=== PATIENT | female | born 1955 | race Caucasian/White ===

== ENCOUNTER 2016-05-26 20:52 | Emergency (ER) | payer BC ==
[~2016-05-26] VITALS: Ht 162.6 cm; Wt 49.9 kg
[2016-05-26 21:21] LABS: BASOPHILS % (AUTO) 1 % (0-10); EOSINOPHILS # (AUTO) 0.1 10^3/uL (0.0-0.3); EOSINOPHILS % (AUTO) 1 % (0-10); LYMPHOCYTES # (AUTO) 1.7 X 10^3 (1.0-4.0); LYMPHOCYTES % (AUTO) 26 % (12-44); MEAN CORPUSCULAR HEMOGLOBIN 32 PG (25-34); MEAN CORPUSCULAR HGB CONC 34 G/DL (32-36); MEAN CORPUSCULAR VOLUME 92 FL (80-99); MEAN PLATELET VOLUME 10.7 FL (7.4-10.4); MONOCYTES # (AUTO) 0.6 X 10^3 (0.0-1.0); MONOCYTES % (AUTO) 9 % (0-12); NEUTROPHILS % (AUTO) 62 % (42-75); PLATELET COUNT 239 10^3/uL (130-400); RED BLOOD COUNT 4.56 10^6/uL (4.35-5.85); RED CELL DISTRIBUTION WIDTH 12.2 % (10.0-14.5); WHITE BLOOD COUNT 6.4 10^3/uL (4.3-11.0)
--- NOTE | 2016-05-26 21:30 | Diagnostic Imaging Report ---
INDICATION: Shaking, weakness, and tingling in extremities. COMPARISON STUDIES: None. FINDINGS: Frontal view of the chest demonstrates the lungs to be clear. The heart, mediastinum, pulmonary vascularity, and visualized bony thorax are normal. IMPRESSION: Negative chest. Dictated by: Dictated on workstation # [id number]
[2016-05-26 21:31] LABS: INR 0.8 (0.8-1.4); PROTHROMBIN TIME PATIENT 11.2 SEC (12.2-14.7)
[2016-05-26 21:40] LABS: ALANINE AMINOTRANSFERASE 15 U/L (0-55); ALBUMIN 4.8 G/DL (3.2-4.5); ANION GAP 14 MMOL/L (5-14); ASPARTATE AMINO TRANSFERASE 22 U/L (5-34); BILIRUBIN,TOTAL 0.5 MG/DL (0.1-1.0); BLOOD UREA NITROGEN 24 MG/DL (7-18); BUN/CREATININE RATIO 28; CALCIUM 9.6 MG/DL (8.5-10.1); CARBON DIOXIDE 24 MMOL/L (21-32); CHLORIDE 106 MMOL/L (98-107); CREATININE SERUM 0.85 MG/DL (0.60-1.30); GFR ESTIMATED > 60; GLUCOSE 120 MG/DL (70-105); MAGNESIUM 2.3 MG/DL (1.8-2.4); POTASSIUM 3.5 MMOL/L (3.6-5.0); SODIUM 144 MMOL/L (135-145); TOTAL PROTEIN 7.7 G/DL (6.4-8.2)
--- NOTE | 2016-05-26 21:44 | Diagnostic Imaging Report ---
PROCEDURE: CT head without contrast. TECHNIQUE: Multiple contiguous axial images were obtained through the brain without the use of intravenous contrast. INDICATION: Shaking, weakness, tingling in the extremities FINDINGS: Noncontrast CT scanning of the head demonstrates no mass effect, midline shift, hemorrhage, or extra-axial fluid collections. The tadeo-white matter differentiation is normal. The ventricles, cortical sulci and basilar cisterns are normal. Mastoid air cells are clear. There is some mucosal thickening of the right ethmoid sinus. The maxillary sinuses are not included on the CT. IMPRESSION: 1. Normal intracranial findings. 2. Sinusitis. Dictated by: Dictated on workstation # [id number]
[2016-05-26 21:52] LABS: BILIRUBIN,URINE NEGATIVE (NEGATIVE); KETONES,URINE NEGATIVE (NEGATIVE); LEUKOCYTE ESTERASE ,URINE NEGATIVE (NEGATIVE); NITRITE,URINE NEGATIVE (NEGATIVE); PH,URINE 7 (5-9); PROTEIN,URINE NEGATIVE (NEGATIVE); UROBILINOGEN,URINE NORMAL (NORMAL)
--- NOTE | 2016-05-26 21:54 | ED General ---
General Chief Complaint: Neurological Problems Stated Complaint: NUMBNESS IN BILAT HANDS,DIZZINESS Nursing Triage Note: Pt. advised she has been experiencing tingling in her hands and feet for the past few weeks that has become progressively worse. She advised she has sceen her PCP for recent hypertension and has begun a new medication regemin. She advised tonight the numbness and tingling are progressively worse and she has been experiencing pain in her ears and advises a burning pain. She states she was experiencing a headache and nausea earlier tonight. Last known well time at approx. 1999 Nursing Sepsis Screen: No Definite Risk Source of Information: Patient History of Present Illness Time Seen by Provider: 21:10 Initial Comments PT ARRIVES VIA POV FROM HOME STATES SHE HAS BEEN FEELING SHAKEY AND LIGHTHEADED SINCE 1999 TONIGHT GOT CLAMMY WELL HAD HEADACHE EARLIER TODAY BUT NOT NOW NO CHEST PAIN NO SHORTNESS OF BREATH NO SWELLING IN LEGS/FEET OR PAIN IN CALVES NO NAUSEA/VOMITING/DIARRHEA AND HAS BEEN EATING AND DRINKING WELL TODAY NO RECENT ILLNESS NO VISION CHANGES NO PALPITATIONS PT HAS HAD ONGOING ISSUES WITH CHRONIC BILATERAL LEG PAIN AND TINGLING IN HANDS AND FEET FOR MANY MONTHS--> MONTHS STATES HER HANDS AND FEET FEEL TINGLY NOW/ BILATERALLY--THIS IS NO DIFFERENT THAN WHAT SHE HAS BEEN EXPERIENCING FOR MONTHS NO MOTOR DEFICITS STATES SHE FELT LIKE THIS ON Wednesday05/24/16 WELL, BUT LASTED 1 1/2 HOURS AND WENT AWAY STATES SHE SAW DR. TEJEDA YESTERDAY, A WEEK AGO AND THE WEEK BEFORE THAT--HAS HAD LAB DONE HE DX HER WITH RAYNAUD'S AND STARTED HER ON MELOXICAM AND GABAPENTIN ON 05/21 HE ALSO DX HER WITH HTN AND STARTED HER ON BP MEDICATION, AMLODIPINE, YESTERDAY. PT TOOK FIRST DOSE YESTERDAY AND HAD A DOSE THIS AM. HAS A FOLLOW UP APPOINTMENT ON Wednesday05/29/16 PCP: DR. TEJEDA Allergies and Home Medications Allergies Coded Allergies: No Known Drug Allergies (Unverified , 05/26/16) Home Medications Cefdinir 300 Mg Capsule #20 300 MG PO BID Prescribed by: CHRISTOPHER OLIVER on 05/26/162219 Fluticasone Propionate 9.9 Ml [place].susp #1 2 SPRAYS NS BID Prescribed by: CHRISTOPHER OLIVER on 05/26/162219 Meclizine HCl 25 Mg Tablet #30 25-50 MG PO Q6H Prescribed by: CHRISTOPHER OLIVER on 05/26/166 Constitutional: see HPINo chills, No diaphoresis, dizzinessNo malaise, No weakness EENTM: no symptoms reportedNo blurred vision, No double vision, No ear pain, No eye pain, No hearing loss, No nose congestion, No vision loss Respiratory: no symptoms reportedNo cough, No dyspnea on exertion, No orthopnea, No short of breath, No wheezing Cardiovascular: no symptoms reportedNo chest pain, No edema, No palpitations, No syncope, No vascular heart diseas Gastrointestinal: no symptoms reportedNo abdominal pain, No diarrhea, No dysphagia, No loss of appetite, No nausea, No vomiting Genitourinary: no symptoms reported Musculoskeletal: see HPI (ALL CHRONIC / STABLE) Skin: no symptoms reportedNo rash Psychiatric/Neurological: See HPI ParesthesiaDenies Seizure, Denies Tremors, Denies Weakness Hematologic/Lymphatic: No Symptoms ReportedDenies Easy Bleeding, Denies Easy Bruising, Denies Swollen Glands Immunological/Allergic: no symptoms reported Past Wvqiygw-Cdowdt-Zddlyw Hx Patient Social History Alcohol Use: Denies Use Recreational Drug Use: No Smoking Status: Never a Smoker Recent Foreign Travel: No Contact w/Someone Who Travel: No Recent Infectious Disease Expo: No Recent Hopitalizations: No Seasonal Allergies Seasonal Allergies: No Surgeries HX Surgeries: Yes Surgeries: Gallbladder Respiratory Hx Respiratory Disorders: No Cardiovascular Hx Cardiac Disorders: Yes (HTN DX 05/2016) Cardiac Disorders: Hypertension Neurological Hx Neurological Disorders: No Reproductive System Hx Reproductive Disorders: No Genitourinary Hx Genitourinary Disorders: No Gastrointestinal Hx Gastrointestinal Disorders: No Musculoskeletal Hx Musculoskeletal Disorders: No Endocrine Hx Endocrine Disorders: No HEENT HX ENT Disorders: Yes Hearing Impairment: Hard of Hearing Cancer Hx Cancer: No Psychosocial Hx Psychiatric Problems: No Integumentary HX Skin/Integumentary Disorder: No Blood Transfusions Hx Blood Disorders: No Physical Exam Vital Signs Vital Sign - Last 12Hours 05/26/16 21:15 Temp 98.9 Pulse 86 Resp 14 B/P 177/102 Pulse Ox 98 Capillary Refill : Less Than 3 Seconds General Appearance: No Apparent Distress WD/WN Anxious HEENT: PERRL/EOMI TMs Normal Normal ENT Inspection Pharynx Normal Other (HARD OF HEARING) Neck: Full Range of Motion Normal Inspection Non Tender SuppleNo Carotid Bruit , No JVD Respiratory: Chest Non Tender Normal Breath Sounds No Accessory Muscle Use No Respiratory Distress Cardiovascular: Regular Rate, Rhythm No Edema No JVD No Murmur Normal Peripheral Pulses Gastrointestinal: Normal Bowel Sounds No Organomegaly No Pulsatile Mass Non Tender Soft Back: Normal Inspection No CVA Tenderness No Vertebral Tenderness Extremity: Normal Capillary Refill Normal Inspection Normal Range of Motion Non Tender No Calf Tenderness No Pedal Edema Neurologic/Psychiatric: Alert Oriented x3 No Motor/Sensory Deficits Normal Mood/Affect (EXCEPT ANXIOUS) 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 Norm as TestedNo Abnormal Cerebellar Tests Skin: Normal Color Warm/Dry Progress/Results/Core Measures Results/Orders Lab Results Laboratory Tests Test 05/26/16 21:13 05/26/16 21:44 Range/Units Activated Partial Thromboplast Time 24 24-35 SEC Alanine Aminotransferase (ALT/SGPT) 15 0-55 U/L Albumin 4.8 H 3.2-4.5 G/DL Alkaline Phosphatase 46 40-136 U/L Anion Gap 14 5-14 MMOL/L Aspartate Amino Transf (AST/SGOT) 22 5-34 U/L BUN/Creatinine Ratio 28 Basophils # (Auto) 0.0 0.0-0.1 10^3/uL Basophils (%) (Auto) 1 0-10 % Blood Urea Nitrogen 24 H 7-18 MG/DL Calcium Level 9.6 8.5-10.1 MG/DL Carbon Dioxide Level 24 21-32 MMOL/L Chloride Level 106 98-107 MMOL/L Creatinine 0.85 0.60-1.30 MG/DL Eosinophils # (Auto) 0.1 0.0-0.3 10^3/uL Eosinophils (%) (Auto) 1 0-10 % Estimat Glomerular Filtration Rate > 60 Glucose Level 120 H 70-105 MG/DL Hematocrit 42 35-52 % Hemoglobin 14.4 11.5-16.0 G/DL INR Comment 0.8 0.8-1.4 Lymphocytes # (Auto) 1.7 1.0-4.0 X 10^3 Lymphocytes (%) (Auto) 26 12-44 % Magnesium Level 2.3 1.8-2.4 MG/DL Mean Corpuscular Hemoglobin 32 25-34 PG Mean Corpuscular Hemoglobin Concent 34 32-36 G/DL Mean Corpuscular Volume 92 80-99 FL Mean Platelet Volume 10.7 H 7.4-10.4 FL Monocytes # (Auto) 0.6 0.0-1.0 X 10^3 Monocytes (%) (Auto) 9 0-12 % Myoglobin 32.4 10.0-92.0 NG/ML Neutrophils # (Auto) 4.0 1.8-7.8 X 10^3 Neutrophils (%) (Auto) 62 42-75 % Platelet Count 239 130-400 10^3/uL Potassium Level 3.5 L 3.6-5.0 MMOL/L Prothrombin Time 11.2 L 12.2-14.7 SEC Red Blood Count 4.56 4.35-5.85 10^6/uL Red Cell Distribution Width 12.2 10.0-14.5 % Sodium Level 144 135-145 MMOL/L TSH [place] Testing 4.38 0.35-4.94 UIU/ML Total Bilirubin 0.5 0.1-1.0 MG/DL Total Protein 7.7 6.4-8.2 G/DL Troponin I < 0.30 <0.30 NG/ML White Blood Count 6.4 4.3-11.0 10^3/uL Urine Amorphous Sediment RARE HOMERO URATES H /LPF Urine Bacteria NEGATIVE /HPF Urine Bilirubin NEGATIVE NEGATIVE Urine Casts NONE /LPF Urine Clarity CLEAR Urine Color YELLOW Urine Crystals NONE /LPF Urine Culture Indicated NO Urine Glucose (UA) NEGATIVE NEGATIVE Urine Ketones NEGATIVE NEGATIVE Urine Leukocyte Esterase NEGATIVE NEGATIVE Urine Mucus NEGATIVE /LPF Urine Nitrite NEGATIVE NEGATIVE Urine Protein NEGATIVE NEGATIVE Urine RBC 0-2 /HPF Urine RBC (Auto) 4+ H NEGATIVE Urine Specific Ages [place] 1.010 L 1.016-1.022 Urine Squamous Epithelial Cells 0-2 /HPF Urine Urobilinogen NORMAL NORMAL MG/DL Urine WBC NONE /HPF Urine pH 7 5-9 My Orders Orders-MELODYMARIOA K DO O2 (05/26/16 21:12) Ekg Tracing (05/26/16 21:12) Cbc With Automated Diff (05/26/16 21:12) Comprehensive Metabolic Panel (05/26/16 21:12) Protime With Inr (05/26/16 21:12) Partial Thromboplastin Time (05/26/16 21:12) Magnesium (05/26/16 21:12) Chest 1 View, Ap/Pa Only (05/26/16 21:12) Cardiac Profile 1 (05/26/16 21:12) Myoglobin Serum (05/26/16 21:12) Ct Head Wo (05/26/16 21:12) Monitor-Rhythm Ecg Trace Only (05/26/16 21:12) Saline Lock/Iv-Start (05/26/16 21:12) Thyroid Analyzer (05/26/16 21:12) Ua Culture If Indicated (05/26/16 21:12) Ceftriaxone Injection (Rocephin Injectio (05/26/16 22:45) Rx-Meclizine Hcl (Rx-Antivert) (05/26/16 22:34) Vital Signs/I&O Blood Pressure Mean: 127 Progress Note : Progress Note UNEVENTFUL ER STAY BP DOWN AT DISMISSAL ECG Initial ECG Impression Time: 21:10 Initial ECG Rate: 85 Initial ECG Rhythm: Normal Sinus Initial ECG Impression: Normal Initial ECG Comparisson: No Previous ECG Available Diagnostic Imaging Comments CT HEAD--SINUSITIS, OTHERWISE NO ACUTE PROCESS CXR--NO ACUTE PROCESS PER RADIOLOGIST REPORTS @ 2154 Reviewed: Reviewed by Me Departure Impression Impression: Primary Impression: HTN-NEW DIAGNOSIS Additional Impressions: CHRONIC BILATERAL HAND AND FEET PARESTHESIAS Sinusitis Disposition: HOME, SELF-CARE Condition: Stable Departure-Patient Inst. Referrals: KARLI TEJEDA DO (PCP/Family) Primary Care Physician Patient Instructions: Heart Healthy Diet, High Blood Pressure (DC), Paresthesias (DC), Sinusitis, Adult (DC) Add. Discharge Instructions: TAKE YOUR MEDICATIONS PRESCRIBED FOLLOW UP WITH DR. TEJEDA THIS WEEK SCHEDULED RETURN TO ER IF SYMPTOMS WORSEN All discharge instructions reviewed with patient and/or family. Voiced understanding. Scripts Meclizine HCl 25 Mg Gahsph64-20 Mg PO Q6H Dizziness #30 TAB Prov:CHRISTOPHER OLIVER DO 05/26/16 Fluticasone Propionate (Flonase Allergy Relief)9.9 Ml [place].susp2 Sprays NS BID #1 SPRAY Prov:CHRISTOPHER OLIVER DO 05/26/16 Cefdinir 300 Mg [id number] Mg PO BID FOR INFECTION #20 CAP Prov:CHRISTOPHER OLIVER DO 05/26/16 CHRISTOPHER OLIVER DO May 26, 2016 21:54
[2016-05-26 21:59] LABS: MYOGLOBIN SERUM 32.4 NG/ML (10.0-92.0)
[2016-05-26 22:00] LABS: SQUAMOUS EPITHELIAL CELL,UR 0-2 /HPF
[2016-05-26] MEDS ORDERED: FLUT9.9S NS (22:20)
[2016-05-26] MEDS ORDERED: CEFD300C3 PO (22:20)
[2016-05-26] MEDS ORDERED: RX-MECLIZINE HCL (ANTIVERT) 25 MG TAB #4 PPK PO STA (22:34)
[2016-05-26] MEDS ORDERED: MECL-106 PO (22:36)
[2016-05-26] MEDS ORDERED: cefTRIAXone INJECTION 1,000 MG in NS (IVPB) 50 ML IV ONE (22:45)
[2016-05-27 00:02] VITALS: BP 140/90
== END 2016-05-27 00:04 | disposition home or self-care (01) ==
LOC: EDUNIT# 20:52 → ER 20:54
DX: R20.2 Paresthesia of skin (principal); J32.2 Chronic ethmoidal sinusitis; I10 Essential (primary) hypertension; Z79.899 Other long term (current) drug therapy
CPT/HCPCS: 36415; 70450; 71010; 80053; 81000; 83735; 83874; 84443; 84484; 85025; 85610; 85730; 93005; 93041; 96365

== ENCOUNTER → 2016-06-26 | Outpatient (CLI) | payer BC ==
[~2016-06-26] VITALS: Ht 154.9 cm; Wt 49.9 kg
[~2016-06-26] MED LIST: CATHETER FLUSH 10 ML SYR IV PRN; CEFD300C3 PO; FLUT9.9S NS; MECL-106 PO
--- OUTSIDE RECORDS SUMMARY | 2016-06-26 07:03 | XMS REPORT | Continuity of Care Document ---
Author Author [facility] Organization [facility] Address Unknown Phone Unavailable Care Team Providers Care Clerical Coordinator Name Role Phone KARLI TEJEDA DO PCP Insurance Providers Payer Name Policy Number Subscriber Name Relationship [facility] [id number] Funmi Noel 18 Self / Same As Patient Chief Complaint and Reason for Visit Chief Complaint Neurological Problems Reason for Visit CHRONIC BILATERAL HAND AND FEET PARESTHESIAS HTN-NEW DIAGNOSIS Sinusitis Problems Active Problems Medical Problem Onset Date Status Sinusitis Unknown Acute Medications Current Home Medications Medication Dose Units Route Directions Days/Qty Instructions Start Date Cefdinir (Omnicef) 300 Mg 300 Mg Oral Twice A Day for For Infection 20 05/26/16 Fluticasone Propionate 9.9 Ml 2 Sprays Nasal Twice A Day 1 05/26/16 Meclizine Hcl 25 Mg 25-50 Mg Oral Every 6 Hours for Dizziness 30 05/26 Social History Social History Problem Response Recorded Date/Time Recent Foreign Travel No 05/26/2016 9:15pm Recent Infectious Disease Exposure No 05/26/2016 9:15pm Recent Hopitalizations No 05/26/2016 9:15pm Hospital Discharge Instructions No hospital discharge instructions. Plan of Care Discharge Date 05/27/16 12:04am Disposition 01 HOME, SELF-CARE Condition at Discharge Stable Instructions/Education Provided Heart Healthy Diet High Blood Pressure (DC) Sinusitis, Adult (DC) Paresthesias (DC) Prescriptions See Medication Section Referrals KARLI TEJEDA DO - Primary Care Physician Additional Instructions/Education TAKE YOUR MEDICATIONS PRESCRIBED FOLLOW UP WITH DR. TEJEAD THIS WEEK SCHEDULED RETURN TO ER IF SYMPTOMS WORSEN All discharge instructions reviewed with patient and/or family. Voiced understanding. Functional Status Query Response Date Recorded Patient Orientation Person Place Time May 26, 2016 9:15pm Comprehension Ability Understands Concepts May 26, 2016 9:15pm Allergies, Adverse Reactions, Alerts No known allergies. Immunizations No immunization records. Vital Signs Acute Vital Signs Vital Response Date/Time Temperature (Fahrenheit) 98.9 degrees F (97.6 - 99.5) 05/26/2016 9:15pm Temperature (Calculated Celsius) 37.69408 degrees C (36.4 - 37.5) 05/26/2016 9:15pm Temperature Source Tympanic 05/26/2016 9:15pm Pulse Rate (adult) 86 bpm (60 - 90) 05/27/2016 12:02am Respiratory Rate 14 bpm (12 - 24) 05/27/2016 12:02am O2 Sat by Pulse Oximetry 98 % (88 - 100) 05/27/2016 12:02am Blood Pressure 140/90 mm Hg 05/27/2016 12:02am Blood Pressure Mean 127 mm Hg 05/26/2016 9:15pm Pain Numeric Pain Scale 0-No Pain 05/27/2016 12:02am Height (Feet) 5 feet 05/26/2016 9:15pm Height (Inches) 4 inches 05/26/2016 9:15pm Height (Calculated Centimeters) 162.144838 cm 05/26/2016 9:15pm Weight (Pounds) 110 pounds 05/26/2016 9:15pm Weight (Calculated Kilograms) 49.813889 kilograms 05/26/2016 9:15pm Capillary Refill Capillary Refill Less Than 3 Seconds 05/26/2016 9:15pm Height 5 ft 4 in Weight 110 lb Body Mass Index 18.9 kg/m^2 Results Laboratory Results Test Name Result Units Flags Reference Collection Date/Time Result Date/ Time Comments White Blood Count 6.4 10^3/uL 4.3-11.0 05/26/2016 9:13pm 05/26/2016 9: 21pm Red Blood Count 4.56 10^6/uL 4.35-5.85 05/26/2016 9:13pm 05/26/2016 9: 21pm Hemoglobin 14.4 G/DL 11.5-16.0 05/26/2016 9:13pm 05/26/2016 9:21pm Hematocrit 42 % 35-52 05/26/2016 9:13pm 05/26/2016 9:21pm Mean Corpuscular Volume 92 FL 80-99 05/26/2016 9:13pm 05/26/2016 9: 21pm Mean Corpuscular Hemoglobin 32 PG 25-34 05/26/2016 9:13pm 05/26/2016 9: 21pm Mean Corpuscular Hemoglobin Concent 34 G/DL 32-36 05/26/2016 9:13pm 10/2016 9:21pm Red Cell Distribution Width 12.2 % 10.0-14.5 05/26/2016 9:13pm 2016 9:21pm Platelet Count 239 10^3/uL 130-400 05/26/2016 9:13pm 05/26/2016 9:21pm Mean Platelet Volume 10.7 FL H 7.4-10.4 05/26/2016 9:13pm 05/26/2016 9: 21pm Neutrophils (%) (Auto) 62 % 42-75 05/26/2016 9:13pm 05/26/2016 9:21pm Lymphocytes (%) (Auto) 26 % 12-44 05/26/2016 9:13pm 05/26/2016 9:21pm Monocytes (%) (Auto) 9 % 0-12 05/26/2016 9:13pm 05/26/2016 9:21pm Eosinophils (%) (Auto) 1 % 0-10 05/26/2016 9:1305/26/2016 9:21pm Basophils (%) (Auto) 1 % 0-10 05/26/2016 9:13pm 05/26/2016 9:21pm Neutrophils # (Auto) 4.0 X 10^3 1.8-7.8 05/26/2016 9:13pm 05/26/2016 9: 21pm Lymphocytes # (Auto) 1.7 X 10^3 1.0-4.0 05/26/2016 9:13pm 05/26/2016 9: 21pm Monocytes # (Auto) 0.6 X 10^3 0.0-1.0 05/26/2016 9:13pm 05/26/2016 9: 21pm Eosinophils # (Auto) 0.1 10^3/uL 0.0-0.3 05/26/2016 9:13pm 05/26/2016 9 :21pm Basophils # (Auto) 0.0 10^3/uL 0.0-0.1 05/26/2016 9:13pm 05/26/2016 9: 21pm Prothrombin Time 11.2 SEC L 12.2-14.7 05/26/2016 9:13pm 05/26/2016 9: 35pm INR Comment 0.8 0.8-1.4 05/26/2016 9:13pm 05/26/2016 9:35pm INTERPRETIVE DATA SUGGESTED THERAPEUTIC RANGE FOR INR'S: VENOUS THROMBOSIS, PULMONARY EMBOLISM, OR PREVENTION OF SYSTEMIC EMBOLISM (EG. IN ATRIAL FIBRILLATION): 2.0 - 3.0 MECHANICAL PROSTHETIC HEART VALVES: 2.5 - 3.5* *NOTE: INR'S UP TO 4.5 MAY BE NECESSARY IN SELECTED GROUPS OF HIGH RISK PATIENTS. [employer] [place] [employer] OF CHEST PHYSICIANS CONSENSUS CONFERENCE ON ANTITHROMBOTIC THERAPY (2000). Activated Partial Thromboplast Time 24 SEC 24-35 05/26/2016 9:13pm 10/2016 9:35pm Urine Color YELLOW 05/26/2016 9:44pm 05/26/2016 10:00pm Urine Clarity CLEAR 05/26/2016 9:44pm 05/26/2016 10:00pm Urine pH 7 5-9 05/26/2016 9:44pm 05/26/2016 10:00pm Urine Specific [place] 1.010 * 1.016-1.022 05/26/2016 9:44pm 2016 10:00pm Urine Protein NEGATIVE NEGATIVE 05/26/2016 9:44pm 05/26/2016 10:00pm Urine Glucose (UA) NEGATIVE NEGATIVE 05/26/2016 9:44pm 05/26/2016 10: 00pm Urine RBC (Auto) 4+ * NEGATIVE 05/26/2016 9:44pm 05/26/2016 10:00pm Urine Ketones NEGATIVE NEGATIVE 05/26/2016 9:44pm 05/26/2016 10:00pm Urine Nitrite NEGATIVE NEGATIVE 05/26/2016 9:44pm 05/26/2016 10:00pm Urine Bilirubin NEGATIVE NEGATIVE 05/26/2016 9:44pm 05/26/2016 10: 00pm Urine Urobilinogen NORMAL MG/DL NORMAL 05/26/2016 9:44pm 05/26/2016 10: 00pm Urine Leukocyte Esterase NEGATIVE NEGATIVE 05/26/2016 9:44pm 2016 10:00pm Urine RBC 0-2 /HPF 05/26/2016 9:44pm 05/26/2016 10:00pm Urine WBC NONE /HPF 05/26/2016 9:44pm 05/26/2016 10:00pm Urine Bacteria NEGATIVE /HPF 05/26/2016 9:44pm 05/26/2016 10:00pm Urine Squamous Epithelial Cells 0-2 /HPF 05/26/2016 9:44pm 2016 10:00pm Urine Crystals NONE /LPF 05/26/2016 9:44pm 05/26/2016 10:00pm Urine Amorphous Sediment RARE HOMERO URATES /LPF * 05/26/2016 9:44pm 10/2016 10:00pm Urine Casts NONE /LPF 05/26/2016 9:44pm 05/26/2016 10:00pm Urine Mucus NEGATIVE /LPF 05/26/2016 9:44pm 05/26/2016 10:00pm Urine Culture Indicated NO 05/26/2016 9:44pm 05/26/2016 10:00pm Sodium Level 144 MMOL/L 135-145 05/26/2016 9:13pm 05/26/2016 9:41pm Potassium Level 3.5 MMOL/L L 3.6-5.0 05/26/2016 9:13pm 05/26/2016 9:41pm Chloride Level 106 MMOL/L 98-107 05/26/2016 9:13pm 05/26/2016 9:41pm Carbon Dioxide Level 24 MMOL/L 21-32 05/26/2016 9:13pm 05/26/2016 9: 41pm Anion Gap 14 MMOL/L 5-14 05/26/2016 9:13pm 05/26/2016 9:41pm Blood Urea Nitrogen 24 MG/DL H 7-18 05/26/2016 9:13pm 05/26/2016 9:41pm Creatinine 0.85 MG/DL 0.60-1.30 05/26/2016 9:13pm 05/26/2016 9:41pm BUN/Creatinine Ratio 28 05/26/2016 9:13pm 05/26/2016 9:41pm Estimat Glomerular Filtration Rate > 60 05/26/2016 9:13pm 2016 9:41pm GFR INTERPRETIVE DATA UNITS FOR ESTIMATED GFR (eGFR): mL/min/1.73 M2 REFERENCE RANGE FOR ESTIMATED GFR (eGFR) eGFR NORMAL eGFR >60 MODERATELY DECREASED eGFR 30-59 SEVERLY DECREASED eGFR 15-29 KIDNEY FAILURE <15 (OR DIALYSIS) Glucose Level 120 MG/DL H 70-105 05/26/2016 9:13pm 05/26/2016 9:41pm Calcium Level 9.6 MG/DL 8.5-10.1 05/26/2016 9:13pm 05/26/2016 9:41pm Magnesium Level 2.3 MG/DL 1.8-2.4 05/26/2016 9:13pm 05/26/2016 9:41pm Total Bilirubin 0.5 MG/DL 0.1-1.0 05/26/2016 9:13pm 05/26/2016 9:41pm Alkaline Phosphatase 46 U/L 40-136 05/26/2016 9:13pm 05/26/2016 9:41pm Aspartate Amino Transf (AST/SGOT) 22 U/L 5-34 05/26/2016 9:13pm 2016 9:41pm Alanine Aminotransferase (ALT/SGPT) 15 U/L 0-55 05/26/2016 9:13pm 05/26 9:41pm Troponin I < 0.30 NG/ML <0.30 05/26/2016 9:13pm 05/26/2016 10:02pm Myoglobin 32.4 NG/ML 10.0-92.0 05/26/2016 9:13pm 05/26/2016 10:02pm Total Protein 7.7 G/DL 6.4-8.2 05/26/2016 9:13pm 05/26/2016 9:41pm Albumin 4.8 G/DL H 3.2-4.5 05/26/2016 9:13pm 05/26/2016 9:41pm TSH [place] Testing 4.38 UIU/ML 0.35-4.94 05/26/2016 9:13pm 05/26/2016 10:02pm Procedures Procedure Status Date Provider(s) Tracing only of electrocardiogram Active 05/26/16 CHRISTOPHER OLIVER DO Encounters Encounter Location Arrival/Admit Date Discharge/Depart Date Attending Provider Departed Emergency Room [facility] 05/26/16 8:54pm 05/27 12:04am CHRISTOPHER OLIVER DO Recent Diagnosis
[2016-06-26 08:04] VITALS: BP 160/86
--- NOTE | 2016-06-26 19:22 | STRESS TEST ---
PROCEDURE PHYSICIAN: HOLLY MARQUEZ DATE OF PROCEDURE: 06/26/2016 RESTING AND POST EXERCISE TECHNETIUM 99M TETROFOSMIN SPECT CT IMAGING: ORDERING PHYSICIAN: Dr. Chicas. PRIMARY PHYSICIAN: Dr. Chicas CLINICAL DIAGNOSIS: R07.9 I10 Baseline images were carried out after injection of 10.25 mCi of technetium 99m tetrofosmin. This was followed by exercise on a treadmill that was carried out under Dr. Chicas's supervision and is reported separately by Dr. Chicas. After the patient had attained more than 85% of maximum predicted heart rate, 30.1 mCi of technetium 99m tetrofosmin were injected and the exercise was continued for another minute. Review of images at rest and following stress, does not indicate any distinct perfusion defects consistent with significant myocardial ischemia or infarction. Gated images show normal global left ventricular systolic function with normal regional wall motion. Left ventricular ejection fraction is calculated to be 69%. Left ventricular end-diastolic volume is 38 mL. TID is absent (1.05). CONCLUSIONS: 1. No evidence of any significant myocardial ischemia or infarction on this study. The electrocardiographic portion of this study is reported separately by Dr. Chicas. 2. Normal regional wall motion. 3. Normal global left ventricular systolic function with a calculated ejection fraction 69%. 4. Normal left ventricular cavity size. Job ID: [id number] Dictated Date: 06/26/2016 13:06:17 Factory Laborer Date: 06/26/2016 19:17:40 / nico
== END ==
LOC: CARD 06:59
PROVIDERS: ATTEND Internal Medicine
DX: I10 Essential (primary) hypertension (principal); R07.9 Chest pain, unspecified
CPT/HCPCS: 78452; 93017

== ENCOUNTER → 2016-07-02 | Outpatient (CLI) | payer BC ==
[~2016-07-02] MED LIST changes: -CATHETER FLUSH 10 ML SYR IV PRN
--- OUTSIDE RECORDS SUMMARY | 2016-07-02 11:31 | XMS REPORT | Continuity of Care Document ---
Author Author [facility] Organization [facility] Address Unknown Phone Unavailable Care Team Providers Care Sawyer Cork Slabs Name Role Phone KARLI TEJEDA DO PCP Insurance Providers Payer Name Policy Number Subscriber Name Relationship [facility] [id number] Funmi Noel 17 Self / Same As [...] YOUR MEDICATIONS PRESCRIBED FOLLOW UP WITH DR. TEJEDA THIS WEEK SCHEDULED RETURN TO ER IF [...] - 99.5) 05/26/2016 9:15pm Temperature (Calculated Celsius) 37.53520 degrees C (36.4 - 37.5) 05/26/2016 9:15pm [...] 4 inches 05/26/2016 9:15pm Height (Calculated Centimeters) 162.436734 cm 05/26/2016 9:15pm Weight (Pounds) 110 pounds 05/26/2016 9:15pm Weight (Calculated Kilograms) 49.551704 kilograms 05/26/2016 9:15pm Capillary Refill Capillary Refill [...] SELECTED GROUPS OF HIGH RISK PATIENTS. [employer] [place] [employer]ST PH[employer] CONSENSUS CONFERENCE ON ANTITHROMBOTIC THERAPY (2000). Activated Partial Thromboplast Time 24 SEC 24-35 05/26/2016 9:13pm 10/2016 9:35pm Urine Color YELLOW 05/26/2016 9:44pm 05/26/2016 10:00pm Urine Clarity CLEAR 05/26/2016 9:44pm 05/26/2016 10:00pm Urine pH 7 5-9 05/26/2016 9:44pm 05/26/2016 10:00pm Urine Specific [place] 1.010 * 1.016-1.022 05/26/2016 9:44pm 2016 10:00pm [...] H 3.2-4.5 05/26/2016 9:13pm 05/26/2016 9:41pm TSH [place] Testing 4.38 UIU/ML 0.35-4.94 05/26/2016 9:13pm 05/26/2016 10:02pm Procedures Procedure Status Date Provider(s) Tracing only of electrocardiogram Active 05/26/16 CHRISTOPHER OLIVER DO Encounters Encounter Location Arrival/Admit Date Discharge/Depart Date Attending Provider Departed Emergency Room [facility] 05/26/16 8:54pm 05/27 12:04am CHRISTOPHER OLIVER DO Recent Diagnosis
--- NOTE | 2016-07-02 12:12 | Diagnostic Imaging Report ---
PROCEDURE: CT sinuses without contrast TECHNIQUE: Multiple contiguous axial images were obtained through the sinuses without the use of intravenous contrast. Coronal and sagittal reformations were then performed. INDICATION: Chronic sinus disease. FINDINGS: There is leftward deviation of the nasal septum with left nasal septal spurring. There is no paranasal sinus air-fluid level. There is mild mural thickening present within the posterior right ethmoid air cell. No other significant mural thickening is identified. The visualized mastoid air cells are also clear. There is no evidence of bone destruction. The ostiomeatal complexes are patent. IMPRESSION: Opacification of posterior right ethmoid air cell, which may be related to chronic ethmoiditis. There is no CT evidence of acute sinusitis or other membrane thickening. Dictated by: Dictated on workstation # [id number]
== END ==
LOC: RAD 11:27
PROVIDERS: ATTEND Nurse Practitioner Family
DX: J32.9 Chronic sinusitis, unspecified (principal)
CPT/HCPCS: 70486

== ENCOUNTER → 2016-09-03 | Outpatient (CLI) | payer BC ==
--- NOTE | 2016-09-04 12:31 | ECHOCARDIOGRAPHY REPORT ---
DATE OF SERVICE: 09/03/2016 REFERRING PHYSICIAN: Dr. Chicas. PROCEDURE: 09/03/2016 MEASUREMENT: LVID end diastolic 4.5, IVS thickness 0.9, LVPW thickness 0.8cm, left atrial diameter 3.0, ejection fraction 60%. FINDINGS: 1. Technical quality is good. 2. The left ventricle is normal in size with normal contractility, systolic function appeared to be normal, estimated ejection fraction 60%. 3. The left atrium is normal in size. No clot or thrombus were seen within the left atrium. 4. The right atrium and right ventricle are normal in size, eustachian valve was noted in the right atrium. No hemodynamic significance. 5. Mitral valve is normal in morphology with mild mitral regurgitation noted by color Doppler flow. No mitral valve prolapse. No mitral valve stenosis. 6. Aortic valve is trileaflet with normal opening and closing pattern, no significant aortic valve stenosis or regurgitation was seen. 7. Tricuspid valve is normal in morphology with mild tricuspid regurgitation noted by color Doppler flow. Doppler across the tricuspid valve estimated pulmonary artery pressure of 24+ right atrial pressure. 8. Pulmonic valve is functioning normally. 9. No pericardial effusion. CONCLUSION: 1. Normal left ventricular size and systolic function, estimated ejection fraction 60%. 2. Eustachian valve was noted incidentally in the right atrium of no hemodynamic significance. 3. Mild mitral and tricuspid regurgitation. 4. Estimated pulmonary artery pressure of 30 mmHg. Job ID: [id number] DocumentID: [id number] Dictated Date: 09/04/2016 08:10:29 [employer] Developer Date: 09/04/2016 09:11:49 Dictated By: ANASTACIA PUGA MD
== END ==
LOC: CARD 13:25
PROVIDERS: ATTEND Internal Medicine Cardiovascular Disease
DX: I10 Essential (primary) hypertension (principal); I73.00 Raynaud's syndrome without gangrene; E03.9 Hypothyroidism, unspecified; R51 Headache; R42 Dizziness and giddiness; R26.89 Other abnormalities of gait and mobility
CPT/HCPCS: 93306